=== PATIENT | female | born 1990 | race Caucasian/White ===

== ENCOUNTER 2018-11-24 15:42 | Emergency (ER) | payer OTHER ==
[~2018-11-24] VITALS: Ht 167.6 cm; Wt 50.3 kg
[2018-11-24 15:49] VITALS: BP 131/61; PULSE 100; RESP 20; Ht 167.6 cm; Wt 50.3 kg
--- NOTE | 2018-11-24 17:28 | ERD ---
ER Documentation Chief Complaint Chief Complaint Sent from MD for evaluation pelvic pain HPI 28-year-old female complaining of right-sided pelvic pain times 1 week. Patient described pain is sharp and cramping like, comes in waves. Patient reports similar pain about 6 months ago. She was [facility] earlier today, and was noted to have positive test. She was sent here by the clinic to evaluate for ectopic . Patient is , LMP 10/28/2018. Denies vaginal bleeding. Denies fever or chills. Denies dysuria. ROS All systems reviewed and are negative except as per history of present illness. Medications Home Meds Active Scripts Acetaminophen* (Tylophen*) 500 Mg Capsule, 1 CAP PO Q6H PRN for PAIN AND OR ELEVATED TEMP, #20 CAP Prov:NASIM QURESHI [facility] 11/24/18 Allergies Allergies: Coded Allergies: No Known Allergy (Unverified , 11/24/18) PMhx/Soc Medical and Surgical Hx: pt denies Medical Hx, pt denies Surgical Hx Hx Alcohol Use: Yes Hx Substance Use: No Hx Tobacco Use: No Smoking Status: Never smoker Physical Exam Vitals Vital Signs Date Temp Pulse Resp B/P (MAP) Pulse Ox O2 O2 Flow FiO2 Time Delivery Rate 11/24/18 100.7 100 20 131/61 98 15:49 (84) Physical Exam General: Well-developed, well-nourished, conscious and coherent, in no distress Skin: Warm and dry without rash, good texture and turgor Head: Normocephalic without evidence of trauma Chest: Normal AP diameter. Good expansion without retractions. Nontender. Lungs are clear to auscultate bilaterally with good tidal volume Heart: Regular rate and rhythm. No murmur, rub, or gallops heard Abdomen: Soft and nontender without masses, guarding, or rebound. Bowel sounds are active. No hepatosplenomegaly Back: Without spinal or CVA tenderness Pelvis: Nontender to palpation and stable to compression. Mild right ing uinal tenderness. Extremities: Full range of motion. Good strength bilaterally. No erythema, ecchymosis, or edema. Peripheral pulses are intact. Sensation intact Neuro: Alert and oriented 4, GCS 15. Result Diagram: 11/24/18 1729 Results 24 hrs Laboratory Tests Test 11/24/18 17:20 11/24/18 17:22 11/24/18 17:29 Bedside Urine pH (LAB) 7.0 Bedside Urine Protein (LAB) 1+ Bedside Urine Glucose (UA) Negative Bedside Urine Ketones (LAB) Trace Bedside Urine Blood Negative Bedside Urine Nitrite (LAB) Negative Bedside Urine Leukocyte Esterase 1+ (L POC Beta HCG, Qualitative POSITIVE White Blood Count 10.4 10^3/ul Red Blood Count 4.25 10^6/ul Hemoglobin 13.1 g/dl Hematocrit 38.5 % Mean Corpuscular Volume 90.6 fl Mean Corpuscular Hemoglobin 30.8 pg Mean Corpuscular 34.0 g/dl Hemoglobin Concent Red Cell Distribution Width 11.8 % Platelet Count 323 10^3/UL Mean Platelet Volume 9.2 fl Immature Granulocytes % 0.400 % Neutrophils % 66.8 % Lymphocytes % 23.8 % Monocytes % 7.8 % Eosinophils % 0.6 % Basophils % 0.6 % Nucleated Red Blood Cells % 0.0 /100WBC Immature Granulocytes # 0.040 10^3/ul Neutrophils # 7.0 10^3/ul Lymphocytes # 2.5 10^3/ul Monocytes # 0.8 10^3/ul Eosinophils # 0.1 10^3/ul Basophils # 0.1 10^3/ul Nucleated Red Blood Cells # 0.0 10^3/ul Urine Color YELLOW Urine Clarity CLOUDY Urine pH 7.0 Urine Specific Clint 1.027 Urine Ketones NEGATIVE mg/dL Urine Nitrite NEGATIVE mg/dL Urine Bilirubin NEGATIVE mg/dL Urine Urobilinogen NEGATIVE mg/dL Urine Leukocyte Esterase 2+ Yosi/ul Urine Microscopic RBC 1 /HPF Urine Microscopic WBC 5 /HPF Urine Squamous Epithelial Cells MANY /HPF Urine Bacteria FEW /HPF Urine Mucus FEW /HPF Urine Hemoglobin NEGATIVE mg/dL Urine Glucose NEGATIVE mg/dL Urine Total Protein NEGATIVE mg/dl Beta HCG, Quantitative 718.6 mIU/ml PROCEDURE: US Pelvis. CLINICAL INDICATION: vaginal bleeding TECHNIQUE: Multiple sonographic images of the pelvis were obtained utilizing a transabdominal and endovaginal technique. The images were reviewed on a PACS workstation. COMPARISON: None. FINDINGS: The uterus is normal in size and demonstrates a normal appearance of the myometrium. The uterus measures 6.9 x 3.6 x 6.1 cm in size. The endometrial stripe is homogeneous in appearance and has the thickness of 15 mm. No intrauterine gestation is noted. The ovaries are normal in size and echogenicity. Normal Doppler flow is identified in both ovaries. The right ovary measures 1.6 x 3.0 x 3.1 cm. The left ovary measures 3.7 x 1.7 x 2.7 cm. There is a trace amount of free fluid in the cul-de-sac. RPTAT: AA IMPRESSION: No intrauterine gestation visualized. Differential diagnosis includes early , missed or ectopic . Follow-up ultrasound and HCG levels is recommended. .Perry Mccarthy MD, MD Date Time Electronically viewed and signed by .Perry Mccarthy MD, on 11/24/2018 18:04 .S/ CC: NASIM QURESHI. [facility]INTER [facility] Procedures/MDM ED course: CBC: No evidence of severe anemia or infection. Beta hC.6 UA: No evidence of urinary tract infection. Blood type: A+. RhoGAM is not indicated for patient. OB ultrasound: No intrauterine gestation visualized. Ovaries normal bilaterally. Trace free fluid in the cul-de-sac. Medical decision-making: Primigravida female presents the ED for right-sided pelvic pain. No intrauterine gestation is visualized on ultrasound, however her beta hCG quant is 718. I think this likely represent an early . Patient does not have any vaginal bleeding, I doubt ectopic or threatened . On exam, patient's pain is noted to be the right inguinal region, I suspect that this may be due to a inguinal hernia. Patient given referral to [facility] for follow-up. Spontaneous and ectopic instructions and return precautions provided. Medications on discharge: Tylenol. Follow-up: Primary care provider in 2 days or return to ED if worse. Departure Diagnosis: Primary Impression: Pelvic pain affecting Trimester: first trimester Qualified Codes: O26.891 - Other specified related conditions, first trimester; R10.2 - Pelvic and perineal pain Condition: Stable NASIM QURESHI NP Nov 24, 2018 17:28
[2018-11-24] MEDS ORDERED: ACET500C5 PO (18:40)
== END 2018-11-24 18:56 | disposition home or self-care (01) ==
LOC: FTE 15:42
DX: O26.891 Other specified pregnancy related conditions, first trimester (principal); R10.2 Pelvic and perineal pain; R40.2412 Glasgow coma scale score 13-15, at arrival to emergency department; Z3A.00 Weeks of gestation of pregnancy not specified
CPT/HCPCS: 36415; 76801; 76817; 81001; 81025; 84702; 85025; 86900; 86901; Z7502; 81003